=== PATIENT | female | born 1960 | race Caucasian/White ===

== ENCOUNTER 2019-02-27 07:08 | Inpatient (IN) | payer SELFPAY ==
[~2019-02-27] VITALS: Ht 157.5 cm; Wt 52.7 kg
[2019-02-27] MEDS ORDERED: METF-445 PO (07:17)
[2019-02-27] MEDS ORDERED: LOSA50TA64 PO (07:17)
[2019-02-27] MEDS ORDERED: OMEP20 PO (07:17)
[2019-02-27] MEDS ORDERED: ONDANSETRON HCL 4 MG/2 ML VIAL IVP ONE (08:00)
[2019-02-27] MEDS ORDERED: SODIUM CHLORIDE 0.9% 1,000 ML IV ONE ×2 (08:00)
[2019-02-27 08:40] LABS: BASOPHILS % (AUTO) 0.6 % (0.0-2.0); EOSINOPHILS % (AUTO) 1.3 % (1.0-6.0); HEMATOCRIT 42.9 % (36-46); HEMOGLOBIN 14.2 g/dL (12.0-16.0); LYMPHOCYTES # (AUTO) 3.3 K/uL (1.0-4.8); LYMPHOCYTES % (AUTO) 23.1 % (22.0-44.0); MEAN CORPUSCULAR HEMOGLOBIN 29.2 pg (26.0-34.0); MEAN CORPUSCULAR HGB CONC 33.1 G/dL (31.0-37.0); MEAN CORPUSCULAR VOLUME 88 fL (80-100); MONOCYTES # (AUTO) 0.9 K/uL (0.1-1.0); MONOCYTES % (AUTO) 6.4 % (2.0-9.0); NEUTROPHILS # (AUTO) 9.7 K/uL (1.8-7.7); NEUTROPHILS % (AUTO) 68.6 % (40.0-70.0); PLATELET COUNT (AUTO) 283 K/uL (150-450); RED BLOOD CELL COUNT(AUTO) 4.85 MIL/uL (4.00-5.20); RED CELL DISTRIBUTION WIDTH 13.9 % (11.5-14.5)
[2019-02-27 09:03] LABS: ANION GAP 11 mmol/L (8-16); CALCIUM, TOTAL 8.7 mg/dL (8.8-10.5); CARBON DIOXIDE 25 mmol/L (22-29); CHLORIDE 103 mmol/L (98-107); CREATININE 0.87 mg/dL (0.60-1.30); GLOMERULAR FILTR. RATE CALC > 60 mL/min (>60); GLUCOSE,RANDOM 390 mg/dL (70-110); POTASSIUM 3.1 mmol/L (3.5-5.1); SODIUM SERUM 139 mmol/L (136-145); UREA NITROGEN, BLOOD 18 mg/dL (7-18)
[2019-02-27 09:05] LABS: GLUCOSE,POINT OF CARE 360 MG/DL (70-110)
[2019-02-27 09:08] LABS: ALANINE AMINOTRANSFERASE 27 U/L (12-78); ALBUMIN 3.2 g/dL (3.4-5.0); ALKALINE PHOSPHATASE 112 U/L (46-116); ASPARTATE AMINOTRANSFERASE 23 U/L (15-37); BILIRUBIN,TOTAL 0.4 mg/dL (0.1-1.0); LIPASE 226 U/L (73-393); TOTAL PROTEIN, SERUM 7.4 g/dL (6.4-8.2)
[2019-02-27 09:34] LABS: BILIRUBIN,URINE NEGATIVE (NEGATIVE); GLUCOSE, URINE (UA) >=1000 mg/dL (NEGATIVE); KETONES,URINE NEGATIVE (NEGATIVE); LEUKOCYTE ESTERASE ,URINE NEGATIVE (NEGATIVE); NITRATE,URINE NEGATIVE (NEGATIVE); OCCULT BLOOD,URINE TRACE (NEGATIVE); PROTEIN,URINE SEE CONFIRM (NEGATIVE); UROBILINOGEN,URINE 0.2 mg/dL (<=1.0)
[2019-02-27] MEDS ORDERED: ASPIRIN 325 MG TABLET PO ONE (09:45)
[2019-02-27 09:53] LABS: APPEARANCE,URINE HAZY (CLEAR)
[2019-02-27 09:54] LABS: BACTERIA,URINE None Seen /HPF (None Seen); RBC,URINE 0-2 /HPF (0-2); SQUAMOUS EPITHELIAL CELL,UR Rare /LPF (None Seen); SULFOSALICYLIC ACID,URINE 2+ (Negative); WBC,URINE 0-2 /HPF (0-5)
[2019-02-27] MEDS ORDERED: ACETAMINOPHEN 325 MG TABLET PO PRN ×2 (10:15)
[2019-02-27] MEDS ORDERED: MORPHINE SULFATE 2 MG/ML SYRINGE IVP PRN (10:15)
[2019-02-27] MEDS ORDERED: ZOLPIDEM TARTRATE 10 MG TABLET PO PRN (10:15)
[2019-02-27] MEDS ORDERED: IPRATROPIUM BROMIDE 0.5 MG/2.5 ML NEB SOLUTION NEB PRN (10:15)
[2019-02-27] MEDS ORDERED: 0.9% SODIUM CHLORIDE 10 ML SYRINGE IVP PRN (10:15)
[2019-02-27] MEDS ORDERED: ONDANSETRON HCL 4 MG/2 ML VIAL IVP PRN (10:15)
[2019-02-27] MEDS ORDERED: MAGNESIUM HYDROXIDE SUSPENSION 30 ML UDCUP PO PRN (10:15)
[2019-02-27] MEDS ORDERED: HYDROCODONE/ACETAMINOPHEN 5-325 MG TABLET PO PRN (10:15)
[2019-02-27] MEDS: NITROGLYCERIN 2% (1 GM=INCH) PACKET TP SCH ×3 (11:17→16:08)
[2019-02-27] MEDS ORDERED: HEPARIN SODIUM 25000 UNITS/D5W 250 ML IV PRN ×2 (12:10→12:15)
[2019-02-27] MEDS ORDERED: HEPARIN SODIUM,PORCINE 5,000 UNITS/ML VIAL IVP ONE (12:15)
[2019-02-27] MEDS ORDERED: HEPARIN SODIUM,PORCINE 5,000 UNITS/ML VIAL IVP PRN (12:15)
[2019-02-27] MEDS: ATORVASTATIN CALCIUM 40 MG TABLET PO SCH ×2 (12:15→12:44)
[2019-02-27] MEDS: METOPROLOL TARTRATE 25 MG TABLET PO SCH ×3 (12:15→21:00)
[2019-02-27] MEDS ORDERED: POTASSIUM CHL 10 MEQ/WATER 50 ML IV ONE (12:15)
[2019-02-27] MEDS: ASPIRIN 81 MG EC TABLET PO SCH ×2 (12:15→12:44)
[2019-02-27] MEDS ORDERED: SODIUM CHLORIDE 0.9% 250 ML IV ONE ×2 (12:42→17:37)
[2019-02-27 12:55] LABS: BASOPHILS % (AUTO) 0.4 % (0.0-2.0); EOSINOPHILS % (AUTO) 0.1 % (1.0-6.0); HEMATOCRIT 43.5 % (36-46); HEMOGLOBIN 14.5 g/dL (12.0-16.0); LYMPHOCYTES # (AUTO) 1.1 K/uL (1.0-4.8); LYMPHOCYTES % (AUTO) 8.6 % (22.0-44.0); MEAN CORPUSCULAR HEMOGLOBIN 29.1 pg (26.0-34.0); MEAN CORPUSCULAR HGB CONC 33.3 G/dL (31.0-37.0); MEAN CORPUSCULAR VOLUME 87 fL (80-100); MONOCYTES # (AUTO) 0.8 K/uL (0.1-1.0); MONOCYTES % (AUTO) 5.8 % (2.0-9.0); NEUTROPHILS # (AUTO) 11.1 K/uL (1.8-7.7); NEUTROPHILS % (AUTO) 85.1 % (40.0-70.0); PLATELET COUNT (AUTO) 275 K/uL (150-450); RED BLOOD CELL COUNT(AUTO) 4.97 MIL/uL (4.00-5.20); RED CELL DISTRIBUTION WIDTH 13.7 % (11.5-14.5)
[2019-02-27 13:02] LABS: INR 0.9 (0.9-1.1); PROTHROMBIN TIME 9.4 SEC (9.4-11.6)
[2019-02-27] MEDS ORDERED: ASPIRIN 300 MG RECTAL SUPPOSITORY PR ONE ×2 (13:45→14:15)
[2019-02-27] MEDS: METOPROLOL TARTRATE 5 MG/5 ML VIAL IVP SCH ×4 (13:45→21:11)
[2019-02-27] MEDS ORDERED: NITROGLYCERIN 50 MG/D5% WATER 250 ML ONE (13:51)
[2019-02-27] MEDS: NITROGLYCERIN 50 MG/D5% WATER 250 ML IV PRN (13:54)
[2019-02-27 16:00] VITALS: BP 137/78
[2019-02-27] MEDS ORDERED: MAGNESIUM OXIDE 400 MG TABLET PO PRN (17:15)
[2019-02-27] MEDS ORDERED: MAGNESIUM SULFATE 2 GM/WATER 50 ML IV PRN (17:15)
[2019-02-27] MEDS ORDERED: MAGNESIUM SULFATE 4 GM/WATER 100 ML IV PRN (17:15)
[2019-02-27] MEDS ORDERED: POTASSIUM CHL 10 MEQ/WATER 50 ML IV PRN (17:15)
[2019-02-27] MEDS ORDERED: POTASSIUM CHLORIDE 20 MEQ ER TABLET PO PRN (17:15)
[2019-02-27 17:41] LABS: POTASSIUM 4.3 mmol/L (3.5-5.1)
[2019-02-27 17:51] LABS: ALBUMIN 3.5 g/dL (3.4-5.0)
[2019-02-27] MEDS ORDERED: PNEUMOCOCCAL VACCINE POLYVALENT 0.5 ML VIAL [PPSV23] IM ONE (18:15)
[2019-02-27] MEDS ORDERED: DEXTROSE 50%-WATER 25 GM/50 ML SYRINGE IVP PRN (19:45)
[2019-02-27 20:00] VITALS: BP 147/78
[2019-02-27] MEDS: DOCUSATE SODIUM 100 MG CAPSULE PO SCH (21:00)
[2019-02-27] MEDS ORDERED: ZOLPIDEM TARTRATE 5 MG TABLET PO PRN (21:02)
[2019-02-27] MEDS: HEPARIN SODIUM,PORCINE 5,000 UNITS/ML VIAL IVP PRN (21:11)
[2019-02-27] MEDS: INSULIN LISPRO 100 UNITS/ML SQ PRN (21:28)
[2019-02-27 21:44] LABS: GLUCOSE,POINT OF CARE 292 MG/DL (70-110)
[2019-02-27 22:56] LABS: AMPHET/METH SCREEN,URINE NEGATIVE (NEGATIVE); BARBITURATE SCREEN, URINE NEGATIVE (NEGATIVE); BENZODIAZEPINES SCREEN,URINE NEGATIVE (NEGATIVE); CANNABINOID SCREEN,URINE NEGATIVE (NEGATIVE); COCAINE SCREEN,URINE NEGATIVE (NEGATIVE); METHADONE SCREEN, URINE NEGATIVE (NEGATIVE); OPIATE SCREEN,URINE NEGATIVE (NEGATIVE)
[2019-02-27 22:57] LABS: PHENCYCLIDINE SCREEN,URINE NEGATIVE (NEGATIVE)
[2019-02-28] VITALS (9 sets, daily range): BP systolic 119–167; BP diastolic 65–86
[2019-02-28] MEDS: METOPROLOL TARTRATE 5 MG/5 ML VIAL IVP SCH ×6 (00:32→21:06)
[2019-02-28 03:48] LABS: BASOPHILS % (AUTO) 0.5 % (0.0-2.0); EOSINOPHILS % (AUTO) 0 % (1.0-6.0); HEMATOCRIT 42.7 % (36-46); HEMOGLOBIN 14.2 g/dL (12.0-16.0); LYMPHOCYTES # (AUTO) 2.2 K/uL (1.0-4.8); LYMPHOCYTES % (AUTO) 14.8 % (22.0-44.0); MEAN CORPUSCULAR HEMOGLOBIN 29.2 pg (26.0-34.0); MEAN CORPUSCULAR HGB CONC 33.3 G/dL (31.0-37.0); MEAN CORPUSCULAR VOLUME 88 fL (80-100); MONOCYTES # (AUTO) 0.9 K/uL (0.1-1.0); MONOCYTES % (AUTO) 6.3 % (2.0-9.0); NEUTROPHILS # (AUTO) 11.6 K/uL (1.8-7.7); NEUTROPHILS % (AUTO) 78.4 % (40.0-70.0); PLATELET COUNT (AUTO) 325 K/uL (150-450); RED BLOOD CELL COUNT(AUTO) 4.86 MIL/uL (4.00-5.20); RED CELL DISTRIBUTION WIDTH 13.8 % (11.5-14.5)
[2019-02-28] MEDS: HEPARIN SODIUM,PORCINE 5,000 UNITS/ML VIAL IVP PRN (04:21)
[2019-02-28 04:32] LABS: ALANINE AMINOTRANSFERASE 31 U/L (12-78); ALBUMIN 3.4 g/dL (3.4-5.0); ALKALINE PHOSPHATASE 100 U/L (46-116); ANION GAP 13 mmol/L (8-16); ASPARTATE AMINOTRANSFERASE 31 U/L (15-37); BILIRUBIN,TOTAL 0.6 mg/dL (0.1-1.0); CARBON DIOXIDE 22 mmol/L (22-29); CHLORIDE 104 mmol/L (98-107); CHOL/HDL RATIO 5.7 (3.9-5.7); CHOLESTEROL 241 mg/dL (131-200); CREATININE 0.84 mg/dL (0.60-1.30); GLOMERULAR FILTR. RATE CALC > 60 mL/min (>60); GLUCOSE,RANDOM 291 mg/dL (70-110); HDL CHOLESTEROL 42 mg/dL (40-60); LDL CHOL (CALC.) 161 mg/dL (0-130); POTASSIUM 4.1 mmol/L (3.5-5.1); SODIUM SERUM 139 mmol/L (136-145); TOTAL PROTEIN, SERUM 7.5 g/dL (6.4-8.2); TRIGLYCERIDES 191 mg/dL (15-150); UREA NITROGEN, BLOOD 17 mg/dL (7-18)
[2019-02-28] MEDS: INSULIN LISPRO 100 UNITS/ML SQ PRN ×3 (06:08→18:10)
[2019-02-28] MEDS: NITROGLYCERIN 50 MG/D5% WATER 250 ML IV PRN ×2 (06:24→20:01)
[2019-02-28 06:39] LABS: GLUCOSE,POINT OF CARE 260 MG/DL (70-110)
[2019-02-28] MEDS: METOPROLOL TARTRATE 25 MG TABLET PO SCH ×2 (08:00→16:00)
[2019-02-28] MEDS: NITROGLYCERIN 2% (1 GM=INCH) PACKET TP SCH ×3 (08:00→16:00)
[2019-02-28] MEDS ORDERED: PANTOPRAZOLE SODIUM 40 MG/VIAL IVP SCH (09:00)
[2019-02-28] MEDS ORDERED: ASPIRIN 81 MG CHEWABLE TABLET PO SCH (09:00)
[2019-02-28] MEDS: ASPIRIN 81 MG EC TABLET PO SCH (09:00)
[2019-02-28] MEDS ORDERED: LOSARTAN POTASSIUM 50 MG TABLET PO SCH (09:00)
[2019-02-28] MEDS: DOCUSATE SODIUM 100 MG CAPSULE PO SCH ×2 (09:00→21:00)
[2019-02-28] MEDS: ATORVASTATIN CALCIUM 40 MG TABLET PO SCH (09:00)
[2019-02-28] MEDS ORDERED: SODIUM BICARBONATE 50 MEQ/50 ML VIAL ONE (12:00)
[2019-02-28] MEDS ORDERED: LIDOCAINE/PF 1% 30 ML VIAL ONE (12:00)
[2019-02-28] MEDS ORDERED: IOHEXOL 300 MG/ML 150 ML VIAL ONE (12:00)
[2019-02-28] MEDS ORDERED: HEPARIN SODIUM 1000 UNITS/NS 1,000 ML ONE (12:00)
[2019-02-28 12:40] LABS: GLUCOSE,POINT OF CARE 259 MG/DL (70-110)
[2019-02-28 19:34] LABS: GLUCOSE,POINT OF CARE 279 MG/DL (70-110)
[2019-02-28 20:05] LABS: ABG A-A DIFF O2 165.4 mmHg (10-20.0); ABG BASE EXCESS -0.2 mmol/L (-2.0-3.0); ABG CARBOXYHEMOGLOBIN 0.7 % (0.0-1.5); ABG HCO3 24.7 mmol/L (22.0-26.0); ABG METHEMOGLOBIN 0.3 % (0.0-1.5); ABG OXYGEN CONTENT 18.8 mL/dL (15.0-23.0); ABG OXYGEN SATURATION 89.9 % (95.0-98.0); ABG PCO2 34 mmHg (35-45); ABG PH 7.461 (7.35-7.450); ABG TOTAL HEMOGLOBIN 15.1 G/dL (12.0-18.0); O2 DEVICE,BLOOD GAS CANNULA (ROOM AIR); SITE, BLOOD GAS RT RADIAL; SOURCE, BLOOD GAS ARTERIAL; TEMPERATURE, FAHRENHEIT, BG 98.6 FAHREN (96.0-98.6)
[2019-02-28] MEDS ORDERED: NICARDipine 20 MG/DEXT,ISO-OSM 200 ML IV PRN (21:46)
[2019-02-28] MEDS ORDERED: RAPID SEQUENCE KIT [RSI] 1 EACH KIT ONE ×2 (22:32→22:34)
[2019-02-28] MEDS ORDERED: SUCCINYLCHOLINE CHLORIDE 20 MG/ML 10 ML VIAL ONE (22:40)
[2019-02-28] MEDS ORDERED: ETOMIDATE 2 MG/ML 10 ML VIAL IVP ONE (23:30)
[2019-02-28] MEDS ORDERED: SUCCINYLCHOLINE CHLORIDE 20 MG/ML 10 ML VIAL IVP ONE (23:30)
[2019-02-28] MEDS ORDERED: SUCCINYLCHOLINE CHLORIDE 20 MG/ML 10 ML VIAL IV ONE (23:59)
[2019-02-28] MEDS ORDERED: ETOMIDATE 2 MG/ML 10 ML VIAL IV ONE (23:59)
[2019-03-01 00:04] LABS: GLUCOSE,POINT OF CARE 291 MG/DL (70-110)
[2019-03-01 03:57] LABS: SODIUM,URINE RANDOM 101 mmol/l (20-110)
[2019-03-01 03:58] LABS: OSMOLALITY,URINE 670 mOS/kg (50-1200)
== END 2019-03-01 | disposition short-term general hospital (02) | DRG 64 ==
LOC: EMS 07:08 → ICU 12:44
PROVIDERS: ADMIT Hospitalist; ATTEND Hospitalist
PROC: 5A1935Z Respiratory Ventilation, Less than 24 Consecutive Hours (ICD-10-PCS; principal; 2019-02-28)
PROC: 0BH17EZ Insertion of Endotracheal Airway into Trachea, Via Natural or Artificial Opening (ICD-10-PCS; 2019-02-28)
DX: I61.4 Nontraumatic intracerebral hemorrhage in cerebellum (principal); I21.4 Non-ST elevation (NSTEMI) myocardial infarction; G93.40 Encephalopathy, unspecified; E11.9 Type 2 diabetes mellitus without complications; D72.829 Elevated white blood cell count, unspecified; E78.5 Hyperlipidemia, unspecified; R53.83 Other fatigue; E87.6 Hypokalemia; I10 Essential (primary) hypertension; Z88.0 Allergy status to penicillin; Z86.73 Personal history of transient ischemic attack (TIA), and cerebral infarction without residual deficits; Z83.3 Family history of diabetes mellitus; Z53.8 Procedure and treatment not carried out for other reasons
CPT/HCPCS: 36600; 70450; 80307; 82805; 82948; 83735; 83935; 84132; 84300; 87081; 93005; 93306; 94002; 96365; 96375; 96376; 99291; C9113; G0378; J0330; J1644; J2405; J3475; J3480; J3490; J7030; J7050; Q9967